=== PATIENT | female | born 1940 | race Two or more races ===

== ENCOUNTER 2016-10-04 09:46 | Inpatient (IN) | payer MEDICARE, MEDICAID ==
[~2016-10-04 09:46] MED LIST: ACTIGALL300 MG PO; AMOXICILLIN500 MG PO; ATORVASTATIN CA20 M1 PO; CLARITHROMYCIN500 MG PO; CRESTOR20 MG/TAB PO; FIBER SUPPLEMENT PO; HYDROCHLOROTH12.5 M1 PO; HYDROCHLOROTH12.5 M3 PO; LISINOPRIL10 MG PO; LISINOPRIL40 M1 PO; MULTI VITAMIN1 EAC1 PO; MULTI VITAMIN1 EAC2 PO; NORCO 5/325 TAB1 TAB PO; NORCO 5/3251 TA1 PO; OMEPRAZOLE20 M2 PO; OMEPRAZOLE40 M2 PO; OXYBUTYNIN CHLOR5 M2 PO; PREPARATION H26 GM TOP; PROPRANOLOL HCL40 M2 PO; PROTONIX40 M2 PO; PROTONIX40 MG PO; TYLENOL650 MG PO; ZANAFLEX4 M3 PO
[2016-10-04] MEDS ORDERED: GLUCOPHAGE500 M3 PO (09:52)
[2016-10-04] MEDS ORDERED: HYDROCODON-ACE1 EA16 PO (10:21)
[2016-10-04] MEDS ORDERED: VITAMIN C500 M3 PO (10:51)
[2016-10-04] MEDS ORDERED: VITAMIN D1000 UNI2 PO (10:52)
[2016-10-04] MEDS ORDERED: VITAMIN B PO (10:52)
[2016-10-04 11:18] LABS: BASO % 0.2 % (0-2); EOS % 1.4 % (0-7); EOSINOPHIL ABSOLUTE COUNT 0.2 tho/cmm (0.0-0.7); HCT-HEMATOCRIT 29.8 % (34.0-49.0); HGB-HEMOGLOBIN 9.4 gm/dl (12.0-15.5); IMMATURE GRANULOCYTES ABSOLUTE 0.03 tho/cmm (0-0.03); IMMATURE GRANULOCYTES PERCENT 0.3 % (0-0.3); LYMPH % 17.9 % (20-45); MCH (MEAN CORPUSCULAR HGB) 26.9 pg (28.0-32.0); MCHC MEAN CORPUSCULAR HGB CONC 31.5 % (32.0-36.0); MCV (MEAN CELL VOLUME) 85.4 fl (82.0-96.0); MONO % 3.7 % (0-12); MONOCYTE ABSOLUTE COUNT 0.4 tho/cmm (0.0-1.2); NEUTROPHIL ABSOLUTE COUNT 8.7 tho/cmm (1.6-8.0); NEUTROPHIL-AUTOMATED 8.7 tho/cmm (1.6-8.0); NEUTROPHILS % 76.5 % (40-80); PLATELET COUNT 317 tho/cmm (150-450); RED BLOOD COUNT 3.49 mil/cmm (4.00-5.20); WHITE BLOOD COUNT 11.3 tho/cmm (4.0-10.0)
[2016-10-04 11:53] LABS: ANION GAP 16 mmol/L (0-20); BLOOD UREA NITROGEN 40 mg/dl (6-24); CALCIUM 8.8 mg/dl (8.5-10.5); CARBON DIOXIDE-VENOUS 25 mmol/L (22-32); CHLORIDE 106 mmol/l (96-110); CREATININE 1.02 mg/dl (0.50-1.10); GLUCOSE 194 mg/dL (70-110); POTASSIUM 4.4 mmol/L (3.7-5.1); SODIUM 143 mmol/L (135-145); eGFR VALUE FOR BLACK 63 mL/Min
[2016-10-05 06:28] LABS: BASO % 0.3 % (0-2); EOS % 1.6 % (0-7); EOSINOPHIL ABSOLUTE COUNT 0.2 tho/cmm (0.0-0.7); HGB-HEMOGLOBIN 7.4 gm/dl (12.0-15.5); IMMATURE GRANULOCYTES ABSOLUTE 0.01 tho/cmm (0-0.03); IMMATURE GRANULOCYTES PERCENT 0.1 % (0-0.3); LYMPH % 34.7 % (20-45); LYMPH ABSOLUTE COUNT 3.4 tho/cmm (0.8-4.5); MCH (MEAN CORPUSCULAR HGB) 26.8 pg (28.0-32.0); MCHC MEAN CORPUSCULAR HGB CONC 31.1 % (32.0-36.0); MCV (MEAN CELL VOLUME) 86.2 fl (82.0-96.0); MEAN PLATELET VOLUME 10.6 cmc (9.4-12.4); MONO % 4.5 % (0-12); MONOCYTE ABSOLUTE COUNT 0.4 tho/cmm (0.0-1.2); NEUTROPHIL ABSOLUTE COUNT 5.7 tho/cmm (1.6-8.0); NEUTROPHIL-AUTOMATED 5.7 tho/cmm (1.6-8.0); NEUTROPHILS % 58.8 % (40-80); PLATELET COUNT 273 tho/cmm (150-450); RED BLOOD COUNT 2.76 mil/cmm (4.00-5.20); RED CELL DISTRIBUTION WIDTH 15.5 % (12.4-16.4); WHITE BLOOD COUNT 9.8 tho/cmm (4.0-10.0)
[2016-10-05 06:32] LABS: HCT-HEMATOCRIT 23.8 % (34.0-49.0)
[2016-10-05 06:36] LABS: ANION GAP 11 mmol/L (0-20); BLOOD UREA NITROGEN 31 mg/dl (6-24); CALCIUM 7.9 mg/dl (8.5-10.5); CARBON DIOXIDE-VENOUS 28 mmol/L (22-32); CHLORIDE 110 mmol/l (96-110); CREATININE 0.81 mg/dl (0.50-1.10); GLUCOSE 120 mg/dL (70-110); POTASSIUM 4.1 mmol/L (3.7-5.1); SODIUM 145 mmol/L (135-145); eGFR VALUE FOR BLACK 83 mL/Min
[2016-10-05 14:23] LABS: HCT-HEMATOCRIT 26.6 % (34.0-49.0); HGB-HEMOGLOBIN 8.5 gm/dl (12.0-15.5); MCV (MEAN CELL VOLUME) 85.5 fl (82.0-96.0); RED CELL DISTRIBUTION WIDTH 15.1 % (12.4-16.4)
[2016-10-05 22:13] LABS: HCT-HEMATOCRIT 26.4 % (34.0-49.0); HGB-HEMOGLOBIN 8.7 gm/dl (12.0-15.5); MCV (MEAN CELL VOLUME) 84.9 fl (82.0-96.0); RED CELL DISTRIBUTION WIDTH 14.9 % (12.4-16.4)
[2016-10-06 05:32] LABS: HGB-HEMOGLOBIN 7.5 gm/dl (12.0-15.5); MCV (MEAN CELL VOLUME) 85.3 fl (82.0-96.0); RED CELL DISTRIBUTION WIDTH 15.3 % (12.4-16.4)
[2016-10-06 05:37] LABS: HCT-HEMATOCRIT 23.2 % (34.0-49.0)
[2016-10-06 14:47] LABS: HGB-HEMOGLOBIN 7.3 gm/dl (12.0-15.5); MCV (MEAN CELL VOLUME) 86.2 fl (82.0-96.0); RED CELL DISTRIBUTION WIDTH 15.1 % (12.4-16.4)
[2016-10-06 14:54] LABS: HCT-HEMATOCRIT 22.4 % (34.0-49.0)
[2016-10-06 22:44] LABS: HGB-HEMOGLOBIN 7.8 gm/dl (12.0-15.5)
[2016-10-06 22:46] LABS: HCT-HEMATOCRIT 23.3 % (34.0-49.0)
[2016-10-07 05:53] LABS: HCT-HEMATOCRIT 24.8 % (34.0-49.0); HGB-HEMOGLOBIN 8.2 gm/dl (12.0-15.5); MCV (MEAN CELL VOLUME) 85.2 fl (82.0-96.0); RED CELL DISTRIBUTION WIDTH 15.3 % (12.4-16.4)
[2016-10-09 06:19] LABS: BASO % 0.2 % (0-2); EOS % 2.8 % (0-7); EOSINOPHIL ABSOLUTE COUNT 0.2 tho/cmm (0.0-0.7); HGB-HEMOGLOBIN 7.2 gm/dl (12.0-15.5); IMMATURE GRANULOCYTES ABSOLUTE 0.01 tho/cmm (0-0.03); IMMATURE GRANULOCYTES PERCENT 0.1 % (0-0.3); LYMPH % 29.3 % (20-45); LYMPH ABSOLUTE COUNT 2.5 tho/cmm (0.8-4.5); MCH (MEAN CORPUSCULAR HGB) 28.3 pg (28.0-32.0); MCHC MEAN CORPUSCULAR HGB CONC 32.1 % (32.0-36.0); MCV (MEAN CELL VOLUME) 88.2 fl (82.0-96.0); MEAN PLATELET VOLUME 10.5 cmc (9.4-12.4); MONO % 6.9 % (0-12); MONOCYTE ABSOLUTE COUNT 0.6 tho/cmm (0.0-1.2); NEUTROPHIL ABSOLUTE COUNT 5.3 tho/cmm (1.6-8.0); NEUTROPHIL-AUTOMATED 5.3 tho/cmm (1.6-8.0); NEUTROPHILS % 60.7 % (40-80); PLATELET COUNT 162 tho/cmm (150-450); RED BLOOD COUNT 2.54 mil/cmm (4.00-5.20); RED CELL DISTRIBUTION WIDTH 15.9 % (12.4-16.4); WHITE BLOOD COUNT 8.7 tho/cmm (4.0-10.0)
[2016-10-09 06:24] LABS: HCT-HEMATOCRIT 22.4 % (34.0-49.0)
[2016-10-10] MEDS ORDERED: COLACE100 M1 PO (12:45)
== END 2016-10-10 13:30 | DRG 378 ==
LOC: EDMED 09:46 → EMR2 13:06 → 5WE 16:10
PROVIDERS: Emergency Medicine; Family Medicine; Physician Assistant; Specialist; ADMIT Internal Medicine
PROC: 0DJ08ZZ Inspection of Upper Intestinal Tract, Via Natural or Artificial Opening Endoscopic (ICD-10-PCS; principal; 2016-10-04)
PROC: 0DJD8ZZ Inspection of Lower Intestinal Tract, Via Natural or Artificial Opening Endoscopic (ICD-10-PCS; 2016-10-05)
PROC: 02HV33Z Insertion of Infusion Device into Superior Vena Cava, Percutaneous Approach (ICD-10-PCS; 2016-10-05)
PROC: 4A02X4A Measurement of Cardiac Electrical Activity, Guidance, External Approach (ICD-10-PCS; 2016-10-05)
DX: K62.5 Hemorrhage of anus and rectum (principal); D62 Acute posthemorrhagic anemia; I12.9 Hypertensive chronic kidney disease with stage 1 through stage 4 chronic kidney disease, or unspecified chronic kidney disease; E66.9 Obesity, unspecified; K21.9 Gastro-esophageal reflux disease without esophagitis; K29.70 Gastritis, unspecified, without bleeding; K57.10 Diverticulosis of small intestine without perforation or abscess without bleeding; K57.90 Diverticulosis of intestine, part unspecified, without perforation or abscess without bleeding; N18.9 Chronic kidney disease, unspecified; N32.81 Overactive bladder; R73.03 Prediabetes; Z68.35 Body mass index [BMI] 35.0-35.9, adult
CPT/HCPCS: A9560; C1751; C9113; G0500; G8978-GP-CJ; G8979-GP-CI; G8980-GP-CI; G8987-GO-CH; G8988-GO-CH; G8989-GO-CH; J1815; J2250; J3010; J7030; P9016